=== PATIENT | female | born 1960 | race Caucasian/White ===

== ENCOUNTER 2016-12-04 19:05 | Emergency (ER) | payer MEDICAID ==
[2016-12-04 20:05] LABS: BASOPHILS 0.4 % (0.0-2.0); EOSINOPHILS 2.7 % (0-7); HEMATOCRIT 41.8 % (36.0-48.0); HEMOGLOBIN 13.9 g/dL (12-16); IMMATURE GRANULOCYTES 0.3 % (0-5); LYMPHOCYTES 21.6 % (15-50); MCH 28.9 pg (26.0-34.0); MCHC 33.3 g/dL (31.0-37.0); MCV 86.9 fL (80.0-100.0); MEAN PLATELET VOLUME 9.5 fL (7.4-10.4); MONOCYTES 6.6 % (2-11); NEUTROPHILS 68.4 % (40-80); PLATELET COUNT 331 10x3/uL (130-400); RBC 4.81 10x6/uL (4.00-5.40); WBC 12.3 10x3/uL (4.8-10.8)
[2016-12-04 20:25] LABS: ALBUMIN 3.4 g/dL (3.4-5.0); ALKALINE PHOSPHATASE 131 U/L (46-116); ALT (SGPT) 36 U/L (10-68); BILIRUBIN - TOTAL 0.27 mg/dL (0.2-1.3); CALC OSMOLALITY 271 mosm/kg (275-300); CALCIUM 8.8 mg/dL (8.5-10.1); CARBON DIOXIDE 28.4 mmol/L (21.0-32.0); CHLORIDE - SERUM 99 mmol/L (98-107); GLUCOSE 107 mg/dL (74-106); POTASSIUM - SERUM 4.1 mmol/L (3.5-5.1); PROTEIN - SERUM 8.3 g/dL (6.4-8.2); SODIUM 135 mmol/L (136-145); UREA NITROGEN 18 mg/dL (7-18); eGFR NON AFRICAN AMERICAN 61 mL/min (90-120)
[2016-12-04 20:47] LABS: CKMB 0.3 U/L (0.0-3.6); CREATINE KINASE 43 UL (21-215); PRO BNP 149 pg/mL (0-125)
[2016-12-04 20:50] LABS: TROPONIN-I < 0.017 ng/mL (0.000-0.060)
== END 2016-12-04 21:40 | disposition home or self-care (01) ==
LOC: D.ER 19:05
PROVIDERS: Emergency Medicine
DX: R60.0 Localized edema (principal); I10 Essential (primary) hypertension; F41.9 Anxiety disorder, unspecified; F32.9 Major depressive disorder, single episode, unspecified

== ENCOUNTER 2018-02-23 12:23 | Day surgery (SDC) | payer MEDICAID ==
[~2018-02-23] VITALS: Ht 162.6 cm; Wt 127.3 kg
--- NOTE | ~2018-02-23 | OP ---
PATIENT NAME: BRAYDON ORTEZ MEDICAL RECORD: [id number] :58 LOCATION:[facility] ADMISSION DATE: SURGEON: GREGORY MOHAMUD DO DATE OF OPERATION: 02/23/2018 PROCEDURE: Colonoscopy with polypectomy. INDICATION FOR PROCEDURE: Screening for colorectal cancer. The patient has never had a colonoscopy before. SCOPE: Olympus video pediatric colonoscope. MEDICATIONS: Propofol 350 mg IV per anesthesia. WITHDRAWAL TIME: 8 minutes. ESTIMATED BLOOD LOSS: Minimal. COMPLICATIONS: None. FINDINGS: Informed consent was given. The patient was made comfortable with the above medication. After reaching an adequate level of sedation by slow IV push, the patient was placed on her left side. A digital rectal examination was performed and was normal. The endoscope was then advanced under direct visualization through the rectum to the cecum with visualization of appendiceal orifice and ileocecal valve. The endoscope was slowly withdrawn and mucosa was carefully examined. The prep quality was excellent. There was a single polyp visualized on today's examination. It was a benign-appearing sessile polyp located in the ascending colon, which measured approximately 4 mm in diameter. It was removed using a hot forceps in one piece and completely retrieved. There were no other polyps seen on today's examination. There were no diverticula. Retroflexion was performed in the rectum with a normal-appearing rectal wall. The endoscope was withdrawn from the patient. The patient tolerated the procedure well and there were no complications. IMPRESSIONS: 1. A single polyp located in the ascending colon as described above, removed using hot forceps. 2. Otherwise, normal colonoscopy. PLAN AND RECOMMENDATIONS: 1. Discharge home when recovery parameters are met. 2. Followup biopsy specimen results. 3. High-fiber diet. 4. Continue current medications. 5. Recall colonoscopy in 5 years. TRANSINT:[id number] Voice Confirmation ID: [id number] DOCUMENT ID: [id number] OPERATIVE REPORT [id number] BRAYDON ORTEZ GREGORY MOHAMUD DO at 0934 CC: [id number] DICTATION DATE: 02/23/18 1601 COOLING PAN TENDER: 02/23/18 1654 [facility] 02/23/18 [place] [address]
[2018-02-23] MEDS ORDERED: ELAVIL25 MG PO (13:57)
[2018-02-23] MEDS ORDERED: WELLBUTRIN SR150 MG PO (13:58)
[2018-02-23] MEDS ORDERED: BAYER CHEWABLE81 MG PO (13:58)
[2018-02-23] MEDS ORDERED: TYLENOL PM1 TAB PO (13:59)
[2018-02-23] MEDS ORDERED: FISH OIL 1,0001 CA1 PO (13:59)
[2018-02-23] MEDS ORDERED: FLAXSEED OIL1000 MG PO (14:00)
[2018-02-23] MEDS ORDERED: HYDROCHLOROTH12.5 M1 PO (14:00)
[2018-02-23] MEDS ORDERED: MOBIC7.5 MG PO (14:01)
[2018-02-23] MEDS ORDERED: HYDROCODON-ACE1 EAC7 PO (14:01)
[2018-02-23] MEDS ORDERED: K-DUR20 MEQ PO (14:03)
[2018-02-23] MEDS ORDERED: ZANTAC150 MG PO (14:04)
[2018-02-23] MEDS ORDERED: TUMERIC ROOT EXTRACT PO (14:04)
[2018-02-23] MEDS ORDERED: VITAMIN D3400 UNI1 PO (14:05)
[2018-02-23] MEDS ORDERED: VITAMIN E (14:06)
[2018-02-23 14:17] VITALS: BP 156/96; Ht 162.6 cm; Wt 127.3 kg
[2018-02-23 14:29] LABS: HEMATOCRIT 41.8 % (36.0-48.0); HEMOGLOBIN 13.4 g/dL (12-16); MCH 28.5 pg (26.0-34.0); MCHC 32.1 g/dL (31.0-37.0); MCV 88.7 fL (80.0-100.0); MEAN PLATELET VOLUME 9.5 fL (7.4-10.4); RBC 4.71 10x6/uL (4.00-5.40); RDW 12.8 % (11.5-14.5); WBC 10.5 10x3/uL (4.8-10.8)
== END 2018-02-23 16:50 | disposition home or self-care (01) ==
LOC: D.OPS 12:23
PROVIDERS: Anesthesiology
DX: Z12.11 Encounter for screening for malignant neoplasm of colon (principal); I10 Essential (primary) hypertension; K21.9 Gastro-esophageal reflux disease without esophagitis; E66.01 Morbid (severe) obesity due to excess calories; Z68.43 Body mass index [BMI] 50.0-59.9, adult; Z01.812 Encounter for preprocedural laboratory examination; K63.5 Polyp of colon